=== PATIENT | female | born 2000 | race Caucasian/White ===

== ENCOUNTER 2018-11-11 16:10 | Emergency (ER) | payer BC ==
--- NOTE | 2018-11-11 17:06 | EDPHY ---
H & P Stated Complaint: genital sores Source: Patient Exam Limitations: No limitations - Personal History LMP (Females 10-55): Over 28 Days Ago Current Tetanus/Diphtheria Vaccine: Yes Current Tetanus Diphtheria and Acellular Pertussis (TDAP): Yes - Medical/Surgical History Hx Asthma: No Hx Chronic Respiratory Disease: No Hx Diabetes: No Hx Cardiac Disease: No Hx Renal Disease: No Hx Cirrhosis: No Hx Alcoholism: No Hx HIV/AIDS: No Hx Splenectomy or Spleen Trauma: No Other PMH: nose surgery - Social History Smoking Status: Never smoked Time Seen by Provider: 11/11/18 16:55 HPI/ROS: HPI: This is a 17-year-old female presents with Chief Complaint: Vaginal sores Location: Vaginal Quality: Sores Duration: 24 hr Signs and Symptoms: no fever, no nausea, no vomiting, no hematemesis, no blood in stool, no abdominal bloating, no diarrhea, no back pain, no urinary symptoms , no vaginal bleeding, + vaginal discharge, no indigestion, no chest pain, no shortness of breath Timing: Sudden onset Severity: Moderate Context: Patient reports that her last menstrual period was approximately 4 weeks ago, takes oral control pills, presents with waking up this morning with small round white sores on her external vaginal area that have burning painful sensation. Patient reports that she has had 1-2 weeks vaginal white discharge and vaginal itchiness. Last unprotected sexual intercourse was 1-2 weeks ago. Modifying Factors: None Comment: ROS: A comprehensive 10 system review of systems is otherwise negative aside from elements mentioned in the history of present illness. MEDICAL/SURGICAL/SOCIAL HISTORY: Medical history: Generally healthy. Surgical history: Nasal surgery Social history: Student at [employer]. Sophomore in college. Denies tobacco and drug use. Family history noncontributory. CONSTITUTIONAL: Slightly anxious teenage white female, awake and alert, no obvious distress HEENT: Atraumatic and normocephalic, PERRL, EOMI. Nares patent; no rhinorrhea; no nasal mucosal edema. Tympanic membranes clear. Oropharynx clear, no exudate and moist pink mucosa. Airway patent. No lymphadenopathy. No meningismus. Cardiovascular: Normal S1/S2, tachycardia, regular rhythm, without murmur rub or gallop. PULMONARY/CHEST: Symmetrical and nontender. Clear to auscultation bilaterally. Good air movement. No accessory muscle usage. ABDOMEN: Soft, nondistended, nontender, no rebound, no guarding, no peritoneal signs, no masses or organomegaly. No CVAT. PELVIC: Approximately 5-10 round tiny lesions with white appearance that are extremely tender to touch. whitish thick discharge, no bleeding. The exam was performed with a busperson. EXTREMITIES: 2/2 pulses, strength 5/5, no deformities, no clubbing, no cyanosis or edema. NEUROLOGICAL: no focal neuro deficits. GCS 15. SKIN: Warm and dry, no erythema. no rash. Good capillary refill. (Lorie Shultz) Constitutional: Initial Vital Signs Temperature (C) 36.6 C 11/11/18 16:14 Heart Rate 115 H 11/11/18 16:14 Respiratory Rate 16 11/11/18 16:14 Blood Pressure 115/73 11/11/18 16:14 O2 Sat (%) 98 11/11/18 16:14 O2 Delivery Mode Room Air Allergies/Adverse Reactions: No Known Allergies Allergy (Unverified 11/11/18 16:17) Home Medications: Medication Instructions Recorded Acyclovir [Zovirax 400 mg (*)] 400 mg PO TID 10 Days #30 tab 11/11/18 metroNIDAZOLE [Metrogel-Vaginal] 70 gm VG HS 5 Days gel.w.appl 11/11/18 Medical Decision Making ED Course/Re-evaluation: Vital signs reviewed and mild tachycardia noted. Lesions are consistent with herpes simplex virus type 2; given acyclovir 800 mg in the ED as well as a prescription Patient also tested for gonorrhea, chlamydia, bacterial vaginosis and wet mount. 1743: Wet prep shows no clue cells, no yeast, no Trichomonas. 3+ bacteria Will treat for bacterial vaginosis with Metrogel suppositories. Referral to OBGYN. No signs of sepsis/PID This patient was seen under the supervision of my secondary supervising physician. I evaluated care for this patient independently. Discussed this patient with Dr. Chester who did not see the patient. (Lorie Shultz) I did not see this patient while she was in the emergency department. However her care was discussed with the PA while the patient was in the department. I agree with treatment plan and management (Jayant Chester) Differential Diagnosis: Differential diagnosis includes but is not limited to gonorrhea, chlamydia, bacterial vaginosis, Trichomonas, herpes simplex virus. (Lorie Shultz) - Data Points Laboratory Results: 11/11/18 11/11/18 11/11/18 17:06 17:05 17:05 Trichomonas (Wet Prep) NO YEAST Rashmi species DNA Pending Cancelled C.trachomatis RNA (TMA) Pending Gardnerella DNA Probe Pending Cancelled N.gonorrhoeae RNA (TMA) Pending Trichomonas DNA Probe Pending Cancelled Medications Given: Discontinued Medications Acyclovir (Acyclovir) 800 mg PO EDNOW ONE Stop: 11/11/18 17:10 Last Admin: 11/11/18 17:25 Dose: 800 mg Departure - Departure Disposition: Home, Routine, Self-Care Clinical Impression: Genital herpes simplex type 2, Bacterial vaginitis Condition: Good Instructions: Bacterial Vaginosis (ED), Genital Herpes Simplex (ED) Additional Instructions: The emergency room will contact you in 24-48 hours if your gonorrhea and chlamydia tests are positive. Take all medications as prescribed. Do not skip a dose. Please refrain from sexual intercourse until all lesions have cleared. Take Tylenol 650 mg every 4 hr and/or ibuprofen 600 mg every 6-8 hours with food as needed for pain. Please contact all sexual partners and notify them of sexually transmitted infection and encourage them to seek treatment. Please establish care with primary care provider. Referrals: Bell Garcia MD [Medical Doctor] - As per Instructions [facility] [Clinic] - As per Instructions Stand Alone Forms: School Excuse Prescriptions: Acyclovir [Zovirax 400 mg (*)] 400 mg PO TID 10 Days #30 tab metroNIDAZOLE [Metrogel-Vaginal] 70 gm VG HS 5 Days gel.w.appl
[2018-11-11] MEDS ORDERED: ACYCLOVIR 400 MG TAB PO ONE (17:09)
[2018-11-11 17:57] VITALS: BP 110/77
[2018-11-12 13:26] LABS: GC AMPLIFICATION GENPROBE NEGATIVE (NEGATIVE)
== END 2018-11-11 18:10 | disposition home or self-care (01) ==
DX: A60.00 Herpesviral infection of urogenital system, unspecified (principal)